=== PATIENT | female | born 1975 ===

== ENCOUNTER → 2018-07-18 22:04 | Outpatient (REF) | payer OTHER, SELFPAY ==
[2018-07-19 01:10] LABS: Alanine Aminotransferase 21 IU/L (9-52); Albumin 3.8 g/dL (3.5-5.0); Albumin Globulin Ratio 1.2 (1.0-2.8); Alkaline Phosphatase 85 U/L (38-126); Aspartate Aminotransferase 18 IU/L (14-36); BUN Creatinine Ratio 15.6 (6-22); Bilirubin Total 0.3 mg/dL (0.2-1.3); Blood Urea Nitrogen 14 mg/dL (7-17); Calcium 8.7 mg/dL (8.4-10.2); Carbon Dioxide 29 mmol/L (22-32); Chloride 104 mmol/L (98-107); Estimated Glomerular Filt Rate > 60.0 mL/min (>60); Globulin 3.2 g/dL (1.7-4.1); Glucose 84 mg/dL (70-100); HEMOLYSIS < 15 (0-50); Potassium 4.2 mmol/L (3.4-5.1); Sodium 140 mmol/L (137-145)
[2018-07-19 02:30] LABS: Thyroid Stimulating Hormone 0.31 uIU/mL (0.47-4.68)
== END ==
LOC: LAB 22:04
PROVIDERS: Visit Provider Naturopath
DX: G89.4 Chronic pain syndrome (principal); Z13.89 Encounter for screening for other disorder
CPT/HCPCS: 36415; 80053; 84443

== ENCOUNTER → 2018-08-07 22:11 | Outpatient (ROUT) | payer OTHER, SELFPAY | PROVIDERS: Visit Provider Naturopath | DX: N39.0 Urinary tract infection, site not specified (principal) | CPT/HCPCS: 87086 ==